=== PATIENT | male | born 1950 | race Hispanic/Latino ===

== ENCOUNTER 2018-02-27 09:03 | Emergency (ER) | payer MEDICARE | END 2018-02-27 10:38 | disposition home or self-care (01) | LOC: EDH 09:03 | DX: J03.90 Acute tonsillitis, unspecified (principal); Z98.890 Other specified postprocedural states | CPT/HCPCS: 70360; 87880 ==

== ENCOUNTER → 2018-03-11 | Outpatient (CLI) | payer MEDICARE | END | disposition home or self-care (01) | LOC: RAH 08:31 | PROVIDERS: ATTEND Otolaryngology Plastic Surgery within the Head & Neck | DX: K21.9 Gastro-esophageal reflux disease without esophagitis (principal); R13.10 Dysphagia, unspecified | CPT/HCPCS: 74220 ==

== ENCOUNTER → 2023-04-09 | Outpatient (CLI) | payer OTHER, MEDICARE | END | disposition home or self-care (01) | LOC: SHCH 14:36 | PROVIDERS: ATTEND Internal Medicine Cardiovascular Disease | DX: I51.7 Cardiomegaly (principal); I48.0 Paroxysmal atrial fibrillation; I44.1 Atrioventricular block, second degree; I51.89 Other ill-defined heart diseases | CPT/HCPCS: 93306 ==

== ENCOUNTER → 2025-02-21 | Outpatient (CLI) | payer OTHER, MEDICARE ==
[2025-02-21 23:06] VITALS: PULSE 50; RESP 12
[2025-02-21 23:07] VITALS: PULSE 75; RESP 12
[2025-02-21 23:30] VITALS: PULSE 50; RESP 12
[2025-02-22] VITALS (12 sets, daily range): PULSE 12–70; RESP 8–14
== END | disposition home or self-care (01) ==
LOC: SLP 20:44
PROVIDERS: ATTEND Internal Medicine Cardiovascular Disease
DX: G47.30 Sleep apnea, unspecified (principal)
CPT/HCPCS: 95810

== ENCOUNTER → 2025-05-03 | Outpatient (CLI) | payer OTHER, MEDICARE ==
[2025-05-03 21:34] VITALS: PULSE 62; RESP 16
[2025-05-03 22:31] VITALS: PULSE 60; RESP 12
[2025-05-03 23:06] VITALS: PULSE 60; RESP 11
[2025-05-03 23:33] VITALS: PULSE 70; RESP 11
[2025-05-03 23:55] VITALS: PULSE 60; RESP 11
[2025-05-03 23:59] VITALS: PULSE 60; RESP 11
[2025-05-04] VITALS (14 sets, daily range): PULSE 50–81; RESP 11–28
== END | disposition home or self-care (01) ==
LOC: SLP 20:29
PROVIDERS: ATTEND Internal Medicine Cardiovascular Disease
DX: G47.30 Sleep apnea, unspecified (principal)
CPT/HCPCS: 95811